=== PATIENT | female | born 1955 | race Two or more races ===

== ENCOUNTER → 2024-04-20 | Outpatient (CLI) | payer MEDICARE, MEDICAID, SELFPAY ==
[2024-04-20 11:02] LABS: Basophils % (Auto) 0 % (0-2.5); Eosinophils # (Auto) 0.1 Thou/mm3 (0.0-0.5); Eosinophils % (Auto) 1 % (0-10); Hematocrit 37.8 % (36.0-46.0); Hemoglobin 12.3 g/dL (12.0-16.0); Immature Granulocytes % (Auto) 1 % (0-0); Immature Granulocytes Auto 0.08 Thou/mm3 (0.00-0.00); Lymphocytes # (Auto) 1.8 Thou/mm3 (1.0-4.8); Lymphocytes % (Auto) 19 % (10-50); Mean Corpuscular HGB Conc 32.5 g/dl (31.0-37.0); Mean Corpuscular Hemoglobin 28.9 pg (25.0-35.0); Mean Corpuscular Volume 89 fL (80-100); Monocytes # (Auto) 0.7 Thou/mm3 (0.0-0.8); Monocytes % (Auto) 7 % (0-12); Neutrophils # (Auto) 6.9 Thou/mm3 (1.8-7.7); Neutrophils % (Auto) 72 % (37-80); Nucleated Red Blood Cell % 0 /100 WBC (0); Platelet Count 320 Thou/mm3 (140-440); Red Blood Count 4.25 Miln/mm3 (4.00-5.20); White Blood Count 9.5 Thou/mm3 (3.6-11.0)
[2024-04-20 11:11] LABS: Partial Thromboplastin Time 28.8 Seconds (22.0-36.0); Prothrombin Time 11.3 Seconds (9.0-12.2)
[2024-04-20 11:13] LABS: Collection Type, Urine Clean Catch
[2024-04-20 11:35] LABS: Alanine Aminotransferase 21 U/L (10-49); Albumin, Serum 4.2 gm/dL (3.4-4.8); Alkaline Phosphatase 95 U/L (46-116); Anion Gap 6 (7-16); Aspartate Amino Transferase 17 U/L (0-34); BUN/Creatinine Ratio 22 Ratio (12-20); Bilirubin,Total 0.6 mg/dL (0.3-1.2); Blood Urea Nitrogen 13 mg/dL (9-23); Calcium 9.6 mg/dL (8.3-10.6); Calcium (Corrected) 9.6 mg/dL (8.5-10.1); Carbon Dioxide 29.7 mMol/L (20.0-31.0); Chloride 109 mMol/L (98-107); Creatinine (Component) 0.6 mg/dL (0.6-1.3); Free T4 (Free Thyroxine) 1.42 ng/dL (0.89-1.76); Globulin 2.1 gm/dL (2.3-3.5); Glucose 84 mg/dL (74-106); Osmolality,Calculated 287 (275-295); Potassium 4.3 mMol/L (3.4-5.1); Sodium 145 mMol/L (136-145); Thyroid Stimulating Hormone 1.29 uIU/mL (0.55-4.78); Total Protein 6.3 gm/dL (5.7-8.2); eGFR > 60 See Note
[2024-04-20 11:45] LABS: Bilirubin,Urine Negative (Negative); Blood,Urine 2+ (Negative); Clarity,Urine Clear (Clear/Hazy); Color,Urine Yellow (Lt Yel-Yel); Glucose, Urine Negative (Negative); Ketones,Urine Negative (Negative); Leukocyte Esterase,Urine Negative (Negative); Nitrite,Urine Negative (Negative); PH,Urine 6.5 (5.0-7.0); Protein,Urine Negative (Neg - Trace); RBC,Urine 3 /hpf (0-3); Specific Gravity,Urine 1.024 (1.001-1.035); Squamous Epithelial Cell,Urine 2 /hpf (0-5); Urobilinogen,Urine Negative mg/dL (0.0-1.0); WBC,Urine 2 /hpf (0-5)
[2024-04-20 14:48] LABS: Glucose Estimated Average 97 mg/dL (80-131)
[2024-04-20 15:11] LABS: Folate 12.93 ng/mL (>5.38); Vitamin B12 1210 pg/mL (211-911); Vitamin D 25 Hydroxy Total 71.2 ng/mL (7.3-40.2)
[2024-04-20 15:28] LABS: Cholesterol 214 mg/dL (132-200); HDL Cholesterol 61 mg/dL (40-60); Triglycerides 89 mg/dL (30-150)
[2024-04-20 15:29] LABS: Cardiac Risk Estimate 3.5 RATIO (3.7-5.6); LDL Cholesterol,Calculated 135 mg/dL (0-130)
== END | disposition home or self-care (01) ==
LOC: COPL 09:41
PROVIDERS: PCP Family Medicine; Referring Provider Physician Assistant; Visit Provider Physician Assistant
DX: Z13.1 Encounter for screening for diabetes mellitus (principal); Z13.220 Encounter for screening for lipoid disorders; Z13.29 Encounter for screening for other suspected endocrine disorder; I10 Essential (primary) hypertension; E55.9 Vitamin D deficiency, unspecified; D68.9 Coagulation defect, unspecified; R53.81 Other malaise
CPT/HCPCS: 36415; 80053; 80061; 81001; 82306; 82607; 82746; 83036; 84439; 84443; 85025; 85610; 85730; 87086

== ENCOUNTER 2024-05-30 17:44 | Emergency (ER) | payer MEDICARE, MEDICAID, SELFPAY ==
[2024-05-30 17:55] VITALS: BP 167/97; PULSE 78; RESP 18; TEMP 37.2; O2SAT 95; BMI 36.8
--- NOTE | 2024-05-30 18:20 | XR_ITS ---
Examination: PA lateral chest 2 views Technique: Upright PA lateral chest 2 views Technique: May 30, 2024 1941 hrs. Comparison November 18, 2022 Indications: Coughing vomiting fever today. Findings: Mitral valvular calcification Ectatic thoracic aorta. Minor subsegmental atelectasis left base Mild pneumonia posterior basal segment left lower lobe on the lateral view, obscuring detail of the posterior right hemidiaphragm Impression: Early pneumonia posterior basal segment left lower lobe
--- NOTE | 2024-05-30 18:22 | PD.EDRME ---
Rapid Medical Screening Exam RME Arrival date/time: 05/30/24 17:44 Chief Complaint: General Adult/Misc Complain Time Seen by Provider: 05/30/24 17:57 Vital signs: Vital Signs Temperature 99 F 05/30/24 17:55 Pulse Rate 78 05/30/24 17:55 Respiratory Rate 18 05/30/24 17:55 Blood Pressure 167/97 H 05/30/24 17:55 Pulse Oximetry (%) 95 05/30/24 17:55 Oxygen Delivery Method Room Air 05/30/24 17:55 Vital signs reviewed by provider: Yes RME Narrative: 69-year-old female presents to the ED with a 1 week complaint of cough with fever, chills and bodyaches. Fevers been as high as 101. She has had runny nose and nasal congestion as well as ear pain. She was seen by her primary care physician last week and given Levaquin 750 mg x 7 days. She is feeling no better and continues with the same symptoms. She was tested for COVID which was negative. Influenza and COVID swabs ordered as well as two-view chest x-ray.
[2024-05-30] MEDS: AZITHROMYCIN 250 MG TABLET 500 MG PO (21:06)
[2024-05-30] MEDS: cefTRIAXone 1,000 MG, LIDOCAINE 1% 20 ML 2.1 ML IM (21:07)
--- NOTE | 2024-08-09 20:30 | PD.EDADULT ---
ED General RME/HPI General Chief complaint: General Adult/Misc Complain Stated complaint: PT SAYS SHE HAS PNA Time Seen by Provider: 05/30/24 17:57 Arrival date/time: 05/30/24 17:44 RME / HPI RME / HPI narrative: 69-year-old female presents to the ED with a 1 week complaint of cough with fever, chills and bodyaches. Fevers been as high as 101. She has had runny nose and nasal congestion as well as ear pain. She was seen by her primary care physician last week and given Levaquin 750 mg x 7 days. She is feeling no better and continues with the same symptoms. She was tested for COVID which was negative. Influenza and COVID swabs ordered as well as two-view chest x-ray. Related Data Home Medications ?Medication ?Instructions ?Recorded ?Confirmed lisinopril 10 mg tablet 20 mg PO QDAY #0 tabs 08/01/13 05/05/21 hydrocodone 5 mg-acetaminophen 325 1 tab PO Q4H PRN Pain 03/04/18 05/05/21 mg tablet ([place]) Held on 05/05/21. Instructions: Resume on 05/06/21. dextroamphetamine-amphetamine ER 25 mg PO DAILY 01/17/20 05/05/21 25 mg 24hr capsule,extend release gabapentin 400 mg capsule 400 mg PO DAILY 01/17/20 05/05/21 pantoprazole 40 mg tablet,delayed 40 mg PO QDAY 01/17/20 05/05/21 release tramadol 50 mg tablet 50 mg PO DAILY 01/17/20 05/05/21 metformin 850 mg tablet 850 mg PO QDAY 05/05/21 05/05/21 Previous Rx's ?Medication ?Instructions ?Recorded albuterol sulfate 90 mcg/actuation 2 puff inhalation Q4H PRN 05/30/24 aerosol inhaler shortness of breath or wheezing #8.5 grams Allergies Allergy/AdvReac Type Severity Reaction Status Date / Time penicillin G Allergy Unknown Hives Verified 05/30/24 17:49 plastic tape Allergy Mild Redness of Uncoded 05/30/24 17:49 Skin Review of Systems Review of Systems Systems Reviewed: All systems reviewed, normal except as documented Past Medical History Past Medical History NEUROLOGIC: Negative Neurological Disorders or Seizures CARDIAC: Positive Cardiac Disorders, Hypercholesterolemia and Hypertension; Negative Congestive Heart Failure RESPIRATORY: Negative Chronic Obstructive Pulmonary Disease (COPD) GASTROINTESTINAL: Positive Gastrointestinal Disorders and Ulcer GENITOURINARY: Negative Genitourinary Disorders or Renal Disease REPRODUCTIVE: Positive Previous Pregnancies (6, 2-AB) MUSCULOSKELETAL: Positive Musculoskeletal Disorders, Arthritis and Osteoporosis ENDOCRINE: Negative Endocrine Disorders, Diabetes Mellitus Type 1 or Diabetes Mellitus Type 2 HEMATOLOGIC: Negative Blood Disorders OTHER HISTORY: Positive Chicken Pox and Mumps; Negative Blood Transfusions, Blood Transfusion Reaction, Anesthesia Reactions, Organ Transplant or Cancer Family History FAMILY HISTORY: Positive Family Cardiac Disorders (mother and father-HTN) and Family Cancer (father-multiplemyloma) Surgical History SURGICAL: Positive Section (x1); Negative Organ Transplant Social History SMOKING STATUS: Never smoker SUBSTANCE USE: does not use ED Exam Narrative Physical exam: Alert and oriented 69-year-old female, no acute distress. Vital signs blood pressure 167/97, pulse 78, respirations 18 and nonlabored, temp 99.0, O2 sat 95% on room air. Lungs are diminished at the bases with a few crackles. No wheezing is noted. Regular rate and rhythm without murmurs. Abdomen is soft and nontender. Moves all extremities well. Course Course Course Narrative: COVID, influenza A/B-. XR chest reveals: Early pneumonia posterior basal segment left lower lobe. Patient was given ceftriaxone 1 g as well as azithromycin 500 mg p.o. She was discharged home in stable condition. Quality Measures none Orders Category Date Time Status Bedside COVID-19 Antigen Test NOW Care 05/30/24 18:20 Completed Bedside Influenza A&B Antigen Test NOW Care 05/30/24 18:21 Completed XR chest 2V Stat Exams 05/30/24 18:20 Completed Azithromycin Po [Zithromax PO] Med 05/30/24 20:52 Discontinued 500 mg PO X1 ONE cefTRIAXone [Rocephin] 1,000 mg Med 05/30/24 20:52 Discontinued Lidocaine 1% 20 ml [Xylocaine 1% 20 ML] 2.1 ml IM X1 Vital Signs Vital signs: Vital Signs Temperature 99 F 05/30/24 17:55 Pulse Rate 78 05/30/24 17:55 Respiratory Rate 18 05/30/24 17:55 Blood Pressure 167/97 H 05/30/24 17:55 Pulse Oximetry (%) 95 05/30/24 17:55 Oxygen Delivery Method Room Air 04/22/25 17:55 Discharge Plan Plan Patient Disposition: HOME (Self Care) Prescriptions/Referrals Prescriptions/Med Rec: New albuterol sulfate 90 mcg/actuation HFA aerosol inhaler 2 puff inhalation Q4H PRN (Reason: shortness of breath or wheezing) Qty: 8.5 0RF No Action lisinopril 10 MG tablet 20 mg PO QDAY Qty: 0 hydrocodone-acetaminophen [[place]] 5-325 mg Tablet 1 tab PO Q4H PRN (Reason: Pain) gabapentin 400 mg capsule 400 mg PO DAILY Patient Comments: TOME 1 C PSULA POR V A ORAL CUATRO VECES AL D A PARA DOLOR ZEN CUANDO SEA NECESARIO tramadol 50 mg tablet 50 mg PO DAILY Patient Comments: TOME XI TABLETA SHIRA VECES AL D A dextroamphetamine-amphetamine 25 mg capsule,extended release 24hr 25 mg PO DAILY Patient Comments: TOME 1 C PSULA POR V A ORAL DOS VECES AL D A POR AGITADO pantoprazole 40 mg Tablet,Delayed Release (Dr/Ec) 40 mg PO QDAY metformin 850 mg Tablet 850 mg PO QDAY Referrals: No Primary/Family,Physician [Primary Care Provider] - In 1 week Problem List Clinical Impression: Community acquired pneumonia Patient/Caregiver Discharge Instructions Education Materials: ED Pneumonia (Adult) Additional Instructions: Follow-up with your primary care physician in 24 to 48 hours. Return to the ED for any new or worsening symptoms. Print Language: Pashto Stand Alone Forms: [employer] Award Info., Patient Portal Info Letter PA/[employer] Supervising Physician PA/[employer] Supervising Physician: Dr. Flavio PATEL Narrative MDM hospital course: 69-year-old female presents to the ED with a 1 week complaint of cough with fever, chills and bodyaches. Fevers been as high as 101. She has had runny nose and nasal congestion as well as ear pain. She was seen by her primary care physician last week and given Levaquin 750 mg x 7 days. She is feeling no better and continues with the same symptoms. She was tested for COVID which was negative. Influenza and COVID swabs ordered as well as two-view chest x-ray. Alert and oriented 69-year-old female, no acute distress. Vital signs blood pressure 167/97, pulse 78, respirations 18 and nonlabored, temp 99.0, O2 sat 95% on room air. Lungs are diminished at the bases with a few crackles. No wheezing is noted. Regular rate and rhythm without murmurs. Abdomen is soft and nontender. Moves all extremities well. COVID, influenza A/B-. XR chest reveals: Early pneumonia posterior basal segment left lower lobe. Patient was given ceftriaxone 1 g as well as azithromycin 500 mg p.o. She was discharged home in stable condition. Clinical Information Provided by patient Medical Records Reviewed [facility] Meds/Rx Considered, not Ordered None Labs/Rad/Tests considered, not Ordered None Chronic Illness/Social Conditions which may negatively complicate care or outcome(s)-explain: None or not applicable EKG EKG not done Lab Interpretation Labs: see narrative above Imaging Imaging interpretation: see narrative above Medication Administration(s) Medication Administration History Discontinued Medications Azithromycin (Azithromycin 250 Mg Tablet) 500 mg PO X1 ONE Stop: 05/30/24 20:53 Last Admin: 05/30/24 21:06 Dose: 500 mg Documented By: Ceftriaxone Sodium 1,000 mg/ (Lidocaine HCl 2.1 ml) 0 mg IM X1 ONE Stop: 05/30/24 20:53 Last Admin: 05/30/24 21:07 Dose: 1,000 mg Documented By: Ceftriaxone 1 g IM, azithromycin 500 mg p.o. Diagnosis Differential diagnosis: Asthma, bronchitis, COVID, influenza, community-acquired pneumonia Most likely dx, and/or detailed dx discussion: Community-acquired pneumonia
== END 2024-05-30 21:24 | disposition home or self-care (01) ==
PROVIDERS: Emergency Provider Family Medicine
DX: J18.9 Pneumonia, unspecified organism (principal)
CPT/HCPCS: 71046; 87400; 87811; 96372; 99283; J0696; J3490; A9270

== ENCOUNTER → 2024-09-07 | Outpatient (CLI) | payer MEDICARE, MEDICAID, SELFPAY ==
[2024-09-07 09:14] LABS: Collection Type, Urine Clean Catch
[2024-09-07 09:38] LABS: Basophils # (Auto) 0.0 Thou/mm3 (0.0-0.2); Basophils % (Auto) 1 % (0-2.5); Eosinophils # (Auto) 0.2 Thou/mm3 (0.0-0.5); Eosinophils % (Auto) 2 % (0-10); Hematocrit 38.7 % (36.0-46.0); Hemoglobin 12.5 g/dL (12.0-16.0); Immature Granulocytes Auto 0.04 Thou/mm3 (0.00-0.00); Lymphocytes # (Auto) 2.0 Thou/mm3 (1.0-4.8); Lymphocytes % (Auto) 25 % (10-50); Mean Corpuscular HGB Conc 32.3 g/dl (31.0-37.0); Mean Corpuscular Hemoglobin 28.5 pg (25.0-35.0); Mean Corpuscular Volume 88 fL (80-100); Monocytes # (Auto) 0.6 Thou/mm3 (0.0-0.8); Monocytes % (Auto) 8 % (0-12); Neutrophils # (Auto) 5.1 Thou/mm3 (1.8-7.7); Neutrophils % (Auto) 65 % (37-80); Nucleated Red Blood Cell # 0.00 Thou/mm3 (0.00-0.00); Nucleated Red Blood Cell % 0 /100 WBC (0); Platelet Count 328 Thou/mm3 (140-440); RDW Standard Deviation 43.3 fL (36.4-46.3); Red Blood Count 4.38 Miln/mm3 (4.00-5.20); White Blood Count 7.9 Thou/mm3 (3.6-11.0)
[2024-09-07 09:42] LABS: Glucose Estimated Average 103 mg/dL (80-131); Hemoglobin A1C 5.2 % Hgb (4.8-6.0)
[2024-09-07 09:48] LABS: Vitamin D 25 Hydroxy Total 48.6 ng/mL (7.3-40.2)
[2024-09-07 09:54] LABS: Alanine Aminotransferase 11 U/L (10-49); Albumin, Serum 4.2 gm/dL (3.4-4.8); Albumin/Globulin Ratio 1.8 (1.2-2.2); Alkaline Phosphatase 81 U/L (46-116); Anion Gap 7 (7-16); Aspartate Amino Transferase 16 U/L (0-34); BUN/Creatinine Ratio 18 Ratio (12-20); Bilirubin,Total 0.5 mg/dL (0.3-1.2); Blood Urea Nitrogen 11 mg/dL (9-23); Calcium 9.3 mg/dL (8.3-10.6); Calcium (Corrected) 9.3 mg/dL (8.5-10.1); Carbon Dioxide 30.1 mMol/L (20.0-31.0); Cardiac Risk Estimate 3.4 RATIO (3.7-5.6); Chloride 105 mMol/L (98-107); Cholesterol 215 mg/dL (132-200); Creatinine (Component) 0.6 mg/dL (0.6-1.3); Free T4 (Free Thyroxine) 1.31 ng/dL (0.89-1.76); Globulin 2.3 gm/dL (2.3-3.5); Glucose 86 mg/dL (74-106); HDL Cholesterol 64 mg/dL (40-60); LDL Cholesterol,Calculated 137 mg/dL (0-130); Osmolality,Calculated 281 (275-295); Potassium 4.5 mMol/L (3.4-5.1); Sodium 142 mMol/L (136-145); Thyroid Stimulating Hormone 0.62 uIU/mL (0.55-4.78); Total Protein 6.5 gm/dL (5.7-8.2); Triglycerides 70 mg/dL (30-150); eGFR > 60 See Note
[2024-09-07 09:59] LABS: Bacteria,Urine 3+; Bilirubin,Urine Negative (Negative); Blood,Urine Negative (Negative); Glucose, Urine Negative (Negative); Hyaline Casts,Urine < 1 /hpf (0-1); Ketones,Urine Negative (Negative); Leukocyte Esterase,Urine Negative (Negative); Nitrite,Urine Negative (Negative); PH,Urine 7.5 (5.0-7.0); Protein,Urine Negative (Neg - Trace); RBC,Urine 27 /hpf (0-3); Specific Gravity,Urine 1.019 (1.001-1.035); Squamous Epithelial Cell,Urine 76 /hpf (0-5); Urobilinogen,Urine Negative mg/dL (0.0-1.0); WBC,Urine 13 /hpf (0-5)
[2024-09-07 10:02] LABS: Clarity,Urine Cloudy (Clear/Hazy); Color,Urine Lt-Yellow (Lt Yel-Yel)
== END | disposition home or self-care (01) ==
LOC: COPL 08:17
PROVIDERS: PCP Physician Assistant; Referring Provider Physician Assistant; Visit Provider Physician Assistant
DX: Z00.01 Encounter for general adult medical examination with abnormal findings (principal); R73.9 Hyperglycemia, unspecified; E66.9 Obesity, unspecified; E55.9 Vitamin D deficiency, unspecified; E78.5 Hyperlipidemia, unspecified
CPT/HCPCS: 36415; 80053; 80061; 81001; 82306; 83036; 84439; 84443; 85025

== ENCOUNTER → 2024-11-15 | Outpatient (CLI) | payer MEDICARE, MEDICAID, SELFPAY ==
[2024-11-15 15:09] LABS: Urea Breath Test Negative (Negative)
== END | disposition home or self-care (01) ==
LOC: COPL 12:46
PROVIDERS: PCP Physician Assistant; Referring Provider Physician Assistant; Visit Provider Physician Assistant
DX: K21.9 Gastro-esophageal reflux disease without esophagitis (principal)
CPT/HCPCS: 83013; 83014

== ENCOUNTER → 2024-12-22 | Outpatient (CLI) | payer MEDICARE, MEDICAID, SELFPAY ==
[2024-12-22 09:04] LABS: Collection Type, Urine Clean Catch
[2024-12-22 09:41] LABS: Basophils # (Auto) 0.0 Thou/mm3 (0.0-0.2); Basophils % (Auto) 0 % (0-2.5); Eosinophils # (Auto) 0.1 Thou/mm3 (0.0-0.5); Eosinophils % (Auto) 1 % (0-10); Hematocrit 37.2 % (36.0-46.0); Hemoglobin 12.4 g/dL (12.0-16.0); Immature Granulocytes Auto 0.03 Thou/mm3 (0.00-0.00); Lymphocytes # (Auto) 1.9 Thou/mm3 (1.0-4.8); Lymphocytes % (Auto) 20 % (10-50); Mean Corpuscular HGB Conc 33.3 g/dl (31.0-37.0); Mean Corpuscular Hemoglobin 29.7 pg (25.0-35.0); Mean Corpuscular Volume 89 fL (80-100); Monocytes # (Auto) 0.6 Thou/mm3 (0.0-0.8); Monocytes % (Auto) 6 % (0-12); Neutrophils # (Auto) 7.0 Thou/mm3 (1.8-7.7); Neutrophils % (Auto) 72 % (37-80); Nucleated Red Blood Cell # 0.00 Thou/mm3 (0.00-0.00); Nucleated Red Blood Cell % 0 /100 WBC (0); Platelet Count 305 Thou/mm3 (140-440); RDW Standard Deviation 46.0 fL (36.4-46.3); Red Blood Count 4.18 Miln/mm3 (4.00-5.20); White Blood Count 9.7 Thou/mm3 (3.6-11.0)
[2024-12-22 09:45] LABS: Bacteria,Urine 3+; Bilirubin,Urine Negative (Negative); Blood,Urine 1+ (Negative); Color,Urine Lt-Yellow (Lt Yel-Yel); Glucose, Urine Negative (Negative); Hyaline Casts,Urine < 1 /hpf (0-1); Ketones,Urine Negative (Negative); Leukocyte Esterase,Urine Negative (Negative); Nitrite,Urine Negative (Negative); PH,Urine 6.5 (5.0-7.0); Protein,Urine Negative (Neg - Trace); RBC,Urine 26 /hpf (0-3); Specific Gravity,Urine 1.022 (1.001-1.035); Squamous Epithelial Cell,Urine 16 /hpf (0-5); Urobilinogen,Urine Negative mg/dL (0.0-1.0); WBC,Urine 6 /hpf (0-5)
[2024-12-22 09:45] LABS: Glucose Estimated Average 91 mg/dL (80-131); Hemoglobin A1C 4.8 % Hgb (4.8-6.0)
[2024-12-22 09:51] LABS: Clarity,Urine Hazy (Clear/Hazy)
[2024-12-22 09:54] LABS: Creatinine MALB Rnd Ur 57 mg/dL (30-125); Microalbumin, Random Urine < 3 mg/L (0-300)
[2024-12-22 09:56] LABS: Alanine Aminotransferase 14 U/L (10-49); Albumin, Serum 4.5 gm/dL (3.4-4.8); Albumin/Globulin Ratio 2.8 (1.2-2.2); Alkaline Phosphatase 70 U/L (46-116); Anion Gap 9 (7-16); Aspartate Amino Transferase 18 U/L (0-34); BUN/Creatinine Ratio 21 Ratio (12-20); Bilirubin,Total 0.5 mg/dL (0.3-1.2); Blood Urea Nitrogen 15 mg/dL (9-23); Calcium 9.1 mg/dL (8.3-10.6); Calcium (Corrected) 9.1 mg/dL (8.5-10.1); Carbon Dioxide 26.2 mMol/L (20.0-31.0); Cardiac Risk Estimate 2.7 RATIO (3.7-5.6); Chloride 105 mMol/L (98-107); Cholesterol 153 mg/dL (132-200); Creatinine (Component) 0.7 mg/dL (0.6-1.3); Free T4 (Free Thyroxine) 1.13 ng/dL (0.89-1.76); Globulin 1.6 gm/dL (2.3-3.5); Glucose 87 mg/dL (74-106); HDL Cholesterol 57 mg/dL (40-60); LDL Cholesterol,Calculated 80 mg/dL (0-130); Osmolality,Calculated 279 (275-295); Potassium 4.4 mMol/L (3.4-5.1); Sodium 140 mMol/L (136-145); Thyroid Stimulating Hormone 0.53 uIU/mL (0.55-4.78); Total Protein 6.1 gm/dL (5.7-8.2); Triglycerides 82 mg/dL (30-150); eGFR > 60 See Note
[2024-12-22 09:59] LABS: Vitamin D 25 Hydroxy Total 78.5 ng/mL (7.3-40.2)
== END | disposition home or self-care (01) ==
LOC: COPL 07:52
PROVIDERS: PCP Physician Assistant; Referring Provider Physician Assistant; Visit Provider Physician Assistant
DX: I10 Essential (primary) hypertension (principal); E55.9 Vitamin D deficiency, unspecified; R73.9 Hyperglycemia, unspecified
CPT/HCPCS: 36415; 80053; 80061; 81001; 82043; 82306; 82570; 83036; 84439; 84443; 85025